=== PATIENT | female | born 1985 | race Caucasian/White ===

== ENCOUNTER 2019-03-09 11:40 | Outpatient (REF) | payer MEDICAID, SELFPAY ==
--- NOTE | 2019-03-09 09:30 | PAPFT_PTH ---
PATIENT: Rosalind Krishnan V LOC: [facility] U#:[id number] AGE/SX: 34/F ROOM: RE03/09/[address]: Skye Chaudhari : 1985 BED: DIS: 03/09/2019 SPEC #: [id number] RECD: 03/09/19 18:11 STATUS: KAREL REQ #: [id number] SOUMYA: 03/09/19 09:[address]: Skye Chaudhari DEPT: [facility] Cytology RECD BY: Kaci Guthrie Tissues: 1 - CX/ENDOCX FOR PAP SMEARS Procedures: PAP THIN PREP/UVM Screening HPV DNA PROBE Comments: [id number]
== END 2019-03-09 12:00 ==
LOC: NCHCN 11:40
PROVIDERS: PCP Nurse Practitioner Family; Visit Provider Nurse Practitioner Family
DX: Z12.4 Encounter for screening for malignant neoplasm of cervix (principal); Z11.51 Encounter for screening for human papillomavirus (HPV)
CPT/HCPCS: 88142; 87624

== ENCOUNTER 2019-05-26 09:34 | Emergency (ER) | payer MEDICAID, SELFPAY ==
[2019-05-26 09:37] VITALS: BP 109/70; PULSE 99; RESP 16; TEMP 37.1; O2SAT 99
--- NOTE | 2019-05-26 09:55 | ED.GENADUL_ITS ---
Discharge Plan Disposition Patient Disposition: HOME Condition: Improving Discharge Details Chief Complaint: GenMedical Clinical Impression: Localized swelling of right upper extremity Primary Care Provider: Skye Chaudhari ED Provider: Jos Jackson Home Meds and New Rx's Prescriptions: New Eliquis 5 mg tablet 10 mg PO BID 3 Days Qty: 12 RF: 0 No Action ibuprofen 600 MG tablet 600 mg PO Q6H PRN Qty: 30 RF: 3 Discharge Instructions Additional Instructions: Take Eliquis 10 mg twice daily and return on Tuesday for right upper extremity ultrasound as we discussed. Return immediately if you develop chest pain, shortness of breath, or any other acute concerns. Avoid the use of ibuprofen/Advil/Motrin while taking Eliquis. Stand Alone Forms: Work Release Medical Decision Making 34-year-old female presents with gradual onset of right humerus swelling, overlying mild pruritic erythema that developed over hours time. She denies trauma, repetitive use, known environmental exposure. She is mildly anxious but otherwise well-appearing and with exam the lacks other significant findings. Differential diagnosis includes allergic reaction with edema, developing cellulitis, doubt DVT, must exclude developing deep abscess. Patient had screening laboratories with white blood cell count 6, hematocrit 42, platelets 211. CRP negative, comprehensive panel unremarkable. CT reveals moderate subcutaneous edema medially over the right humerus. There is no abnormal gas, no fluid collection. There is question of a filling defect involving the brachial vein in the mid to distal arm. Ultrasound recommended but not available on the weekend. Discussed with patient the findings, it does seem consistent with DVT, I will place her on Eliquis for the weekend, she will return Tuesday for right upper extremity venous ultrasound and recheck in the ED. She understands return precautions in the interim. HPI General Mode of arrival: ambulatory . Date/Time Provider Initiated Documentation: 05/26/19 09:39 . Limitations to Documentation: no limitations . Information obtained by: patient . History of Present Illness 34 year old F presents to the emergency department with the chief complaint of Right upper extremity swelling and discomfort of the humerus, mild itching, described as moderate, Quality is described as dull and constant, and is localized to the right and upper extremity. Patient reports no radiation. Patient started experiencing this hour(s) and it has been constant. No relieving factors improve symptom(s), No exacerbating factors reported . Patient notes other (Discrete redness, itching); denies fever/chills. Patient did receive the following treatments prior to arrival, none Related Data Home Medications Medication Instructions Recorded Confirmed ibuprofen 600 mg PO Q6H PRN #30 tab-cap 01/08/15 05/26/19 apixaban [Eliquis] 10 mg PO BID 3 Days #12 tab 05/26/19 Previous Rx's Medication Instructions Recorded apixaban [Eliquis] 10 mg PO BID 3 Days #12 tab 05/26/19 Allergies Allergy/AdvReac Type Severity Reaction Status Date / Time morphine Allergy Severe gets a Unverified 05/26/19 09:42 wright and feels something in her throat. tramadol Allergy Intermediate Other (See Unverified 05/26/19 09:42 Comment) fluoxetine HCl [From Prozac] AdvReac Severe dizzness Unverified 05/26/19 09:42 and lips go numb. marijauna AdvReac Intermediate vomiting Uncoded 05/26/19 09:42 General Stated Complaint: GenMedical ZAC: 4 Review of Systems Review of Systems Narrative: No fever or chills. Denies insect bite, no fall or trauma, no new repetitive use. No chest pain or shortness of breath. Otherwise healthy woman. No weakness. 6 systems reviewed and negative [facility] Medical History Anxiety and depression Dysmenorrhea Female pelvic pain Migraine Tobacco use Surgical History Ligation of fallopian tube (~2011) Family History Mother Thyroid disorder Father Depression Social History Smoking/Tobacco Use Status: Current every day Tobacco Type: cigarettes Alcohol Intake: former Drug use: Never Substance use type: does not use Do you feel safe at home: Yes Do you feel safe in your relationship?: Yes Exam Narrative Exam Narrative: GEN: awake, alert, oriented 3. Pleasant, well groomed, interactive. HEAD: Normocephalic, atraumatic ENT: Mucous membranes moist, oropharynx unremarkable, External ear exam unremarkable EYES: PERRL, EOMI NECK: Full ROM, no ALEX, no menigismus CHEST/RESP: Nontender, clear to auscultation bilateral, no wheeze/rhonchi/rales CARDIOVASCULAR: RRR, no murmur, rub juan carlos. 2+ Rad pulse bilateral ABDOMEN: Soft, nontender, no mass. +Bowel sounds EXT: Full ROM. 2+ radial pulse, sensation and motor intact throughout. The right humerus overlying the triceps in the dependent/medial aspect reveals discr ete blanching erythema, mild edema, no fluctuance. Neuro: Grossly normal neurologic exam, conversant, interactive. Psych: Speech fluent, thoughts congruent, affect normal Course Vital Signs Vital signs: Vital Signs Temperature 37.1 C 05/26/19 09:37 Pulse 99 H 05/26/19 09:37 Respiratory Rate 16 05/26/19 09:37 Blood Pressure 109/70 05/26/19 09:37 Pulse Oximetry 99 05/26/19 09:37 Temperature 37.1 C 05/26/19 09:37 Temperature Source Skin 05/26/19 09:37 Pulse 99 H 05/26/19 09:37 Respiratory Rate 16 05/26/19 09:37 Respiratory Effort Non-Labored 05/26/19 09:43 Blood Pressure 109/70 05/26/19 09:37 Pulse Oximetry 99 05/26/19 09:37 Pain Level 2 05/26/19 09:37
[2019-05-26] MEDS: Normal Saline 1,000 ML 1000 ML IV (10:28)
[2019-05-26] MEDS: methylPREDNISolone SUCC 125 MG VIAL IVP (10:30)
[2019-05-26] MEDS: Omnipaque 350 MG/ML 100 ML BTL IJ (10:31)
[2019-05-26] MEDS: Normal Saline - Diluent 50 ML VIAL IV (10:31)
[2019-05-26 10:32] LABS: Abs Immature Grans 0.02 k/cumm (0.0-0.09); Absolute Basophil Count 0.04 k/cumm (0.0-0.2); Absolute Eosinophil Count 0.39 k/cumm (0.0-0.7); Absolute Lymphocyte Count 1.35 k/cumm (1.2-3.4); Absolute Monocyte Count 0.38 k/cumm (0.11-0.7); Absolute Neutrophil Count 4.57 k/cumm (1.2-6.7); Basophils % 0.6; Eosinophils % 5.8; HCT 42.5 % (36.0-46.0); HGB 14.2 g/dL (12.0-15.5); Immature Grans % 0.3; Mean Corp. HGB Concentration 33.4 g/dL (32.0-36.0); Mean Corpuscular Hemoglobin 30.9 pg (27.0-33.0); Mean Corpuscular Volume 92.6 fL (80-95); Mean Platelet Volume 10.1 fL (8.0-11.0); Monocytes % 5.6; Neutrophils % 67.7; Platelet Count 211 x1000/uL (130-400); RBC 4.59 m/cumm (4.00-5.20); RBC Distribution Width 12.6 % (11.7-14.6); White Blood Cell Count 6.75 k/cumm (4.4-10.8)
[2019-05-26 10:44] LABS: ALT 18 U/L (14-59); AST 19 U/L (15-37); Alkaline Phosphatase 46 U/L (46-116); Anion Gap 9.3 mmol/L (3-11); BUN 11 mg/dL (7-18); Bilirubin, Total 0.6 mg/dL (0.2-1.0); CO2 25.7 mmol/L (21.0-32.0); CREATININE 0.73 mg/dL (0.55-1.02); Calcium 8.8 mg/dL (8.5-10.1); Chloride 109 mmol/L (98-107); Glucose 94 mg/dL (70-100); Sodium 144 mmol/L (136-145); Total Protein 7.4 g/dL (6.4-8.2)
--- NOTE | 2019-05-26 10:45 | DI.VRAD_ITS ---
Addendum created by Reece Ayala MD on 05/26/2019 10:50:27 AM EDT THIS REPORT CONTAINS FINDINGS THAT MAY BE CRITICAL TO PATIENT CARE. The findings were verbally communicated via telephone conference with KANIKA Paz at 10:50 AM EDT on 05/26/2019. The findings were acknowledged and understood. Initial report created on 05/26/2019 10:45:19 AM EDT PROCEDURE INFORMATION: Exam: CT Right Upper Extremity With Contrast, Upper Arm Exam date and time: 05/26/2019 10:18 AM Clinical history: 34 years old, female; Arm, upper; Patient HX: Right humerus swelling from shoulder to distal elbow joint. Pain and swelling since this morning. ; Additional info: PT sts no trauma, was not stung. Patient unsure why swelling and pain of right arm occurred. TECHNIQUE: Imaging protocol: CT of the Right upper extremity with intravenous contrast was performed. Exam focused on the upper arm. Radiation optimization: All CT scans at this facility use at least one of these dose optimization techniques: automated exposure control; mA and/or kV adjustment per patient size (includes targeted exams where dose is matched to clinical indication); or iterative reconstruction. Contrast material: OMNIPAQUE 350; Contrast volume: 100 ml; Contrast route: IV; COMPARISON: No relevant prior studies available. FINDINGS: Bones/joints: No acute fracture is identified. The shoulder and elbow joints are normally aligned. There is no osseous erosion or cortical destruction. No significant shoulder or elbow joint effusion is evident. Soft tissues: There is moderate subcutaneous edema medially over the arm, from the level of the axilla to the elbow. Edema also extends along the axillary vessels. There is probably edema involving some of the posteromedial musculature of the arm as well. No well-formed collection to indicate abscess is identified. There is no abnormal gas in the soft tissues. Vasculature: Question filling defect involving the brachial vein in the mid to distal arm. Lungs: The visualized right lung is clear. IMPRESSION: Moderate subcutaneous edema medially over the arm and about the axillary vessels, probable edema involving some of the posteromedial musculature. No abnormal soft tissue mass or collection. Findings are nonspecific, but there may be deep venous thrombus in the brachial vein. Suggest venous Doppler evaluation. Dictated and Authenticated by: Reece Ayala MD. Ordering:NATALIE Arguello MD
[2019-05-26 10:56] LABS: C-Reactive Protein < 0.05 mg/dL (0.0-0.3)
[2019-05-26] MEDS: Apixaban 5 MG TAB 10 MG PO (11:33)
--- NOTE | 2019-05-26 12:30 | DI.CT_ITS ---
EXAM: CT UPPER EXTREMITY RT W CLINICAL HISTORY: RUE humerus, dependent swelling, discomfort. TECHNIQUE: CT scan of the right upper extremity was performed from the axilla to the elbow. Intrave nous contrast material was administered. COMPARISON: No exams were available for comparison FINDINGS: No acute fracture, dislocation, lytic, or sclerotic lesion is seen. No significant joint effusion is seen in the shoulder or elbow. There is moderate subcutaneous edema seen in the right upper extremi ty medially. This extends from the axilla to the elbow. No focal fluid collection is seen to sugges t an abscess. No air is seen in the soft tissues. There is a question of a filling defect in the br achial vein extending from the mid to distal arm. The visualized lungs are clear IMPRESSION: Moderate subcutaneous edema over the arm medially. No focal fluid collection is seen to suggest an a bscess. Question of a filling defect involving the brachial vein. Ultrasound of the right upper extremity ma y be considered for further evaluation.
[2019-05-26 12:54] VITALS: BP 100/58; PULSE 71; RESP 16; O2SAT 100
--- NOTE | 2019-05-27 09:40 | CMPROGNOTE_ITS ---
- If Service Date Differs Date of service: 05/26/19 Time of Service: 13:30 Care Management Progress Note S/O: KIMBERLEE met with Rosalind at the bedside she is a pleasant young female in the ED today with a suspected DVT in her right arm. Rosalind identifies multiple stresses in her life contributing to her increase anxiety. 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 She states her anxiety inhibits her from taking new medications and she is concerned that she will not be able to take the Eliquis for the suspected DVT. Rosalind has started the medication here at the hospital and feels supported that she is in a controlled environment when starting the medication. Rosalind has minimal supports she has her two children 14 and 11 which live with her. She works in [place] and she identifies her boss as additional support. She stopped taking medications for her anxiety about 4 years ago and is aware of some methods to decrease her anxiety including deep breathing, and counting which both help. KIMBERLEE reviewed some other techniques including grounding herself using the method of 5 things you can see, 4 things you can hear, three things you can touch, two things you can touch and one thing you can taste. Rosalind was able to do the exercise with CM in the room and she felt this gave her relief from the anxiety she was feeling. She is willing to see her provider and meet with T at her primary care. CM will fax referral for follow up to the provider and request that she be referred to [facility] at [facility]. KIMBERLEE will also contact [facility] Tania Matos RN [facility] at the practice for follow up. Rosalind will return to [facility] on Tuesday for Ultra Sound on the right arm. Rosalind will contact if she has any difficulty with obtaining her medications or taking them. P: Rosalind was able to demonstrate some calming techniques to control her symptoms of anxiety. She will have her ultra sound on Tuesday. KIMBERLEE will contact primary care and request a follow up ED appointment and referral to T and CCC. Rosalind best contact number is [phone].
== END 2019-05-26 13:04 | disposition home or self-care (01) ==
PROVIDERS: Emergency Provider Emergency Medicine; PCP Nurse Practitioner Family
DX: R22.31 Localized swelling, mass and lump, right upper limb (principal)
CPT/HCPCS: 36415; 80053; 96361; 96374; 99285; 73201; 85025; 86140; 99284; J2930; J3490

== ENCOUNTER 2019-05-28 09:40 | Outpatient (CLI) | payer MEDICAID, SELFPAY ==
--- NOTE | 2019-05-28 10:11 | DI.US_ITS ---
EXAM: US UPPER EXTREMITY VENOUS RT CLINICAL HISTORY: PAIN, SWELLING, ? DVT ON CT. TECHNIQUE: Ultrasound examination of the right upper extremity venous system(s) is performed using g rayscale, color-flow, and spectral Doppler analysis. COMPARISON: There are no priors for comparison. FINDINGS: The right internal jugular, axillary, subclavian, cephalic, basilic, and brachial veins are patent wi thout evidence of thrombosis. IMPRESSION: No DVT. The emergency department was contacted with these results.
== END 2019-05-28 10:00 ==
PROVIDERS: PCP Nurse Practitioner Family; Visit Provider Emergency Medicine
DX: M79.601 Pain in right arm (principal); R22.31 Localized swelling, mass and lump, right upper limb
CPT/HCPCS: 93971

== ENCOUNTER 2019-05-28 11:08 | Emergency (ER) | payer MEDICAID, SELFPAY ==
[2019-05-28 11:13] VITALS: BP 112/70; PULSE 69; RESP 16; TEMP 36.8; O2SAT 100
--- NOTE | 2019-05-28 11:17 | ED.GENADUL_ITS ---
Discharge Plan Disposition Patient Disposition: HOME Condition: Improving Discharge Details Chief Complaint: Recheck Clinical Impression: Pain and swelling of right upper extremity Primary Care Provider: Skye Chaudhari ED Provider: Janell Saul Home Meds and New Rx's Prescriptions: Continued ibuprofen 600 MG tablet 600 mg PO Q6H PRN Qty: 30 RF: 3 Discontinued Eliquis 5 mg tablet 10 mg PO BID 3 Days Qty: 12 RF: 0 Discharge Instructions Additional Instructions: Encourage elevation. Your ultrasound did not show any evidence of clot. You may stop the Eliquis. At this point, as you are symptoms are improving, I advised that you can closely monitor the area and follow-up with your primary care. If you develop chest pain, shortness of breath, increased swelling, rash, increased pain, fever/chills or other new/worsening symptoms please seek care urgently once again. Referrals: Skye Chaudhari [Primary Care Provider] - Discharge Data Discharge Date/Time-TO BE ENTERED AT DEPARTURE: 05/28/19 11:38 Medical Decision Making Patient is a 34-year-old [id number] female presenting today with chief complaint of reevaluation of her right upper extremity. She was seen here 2 days ago at which time a CT and laboratory evaluation was completed for right upper extremity swelling. She reports that the swelling had begun the day prior to her presentation here and progressively had increased. Denies any known contact. Reports that after leaving here, she developed an itchy, erythematous rash to the medial aspect of the right upper arm. Patient was placed on Eliquis as there was concern CT scan for possible DVT. Patient underwent her ultrasound prior to arrival today. She denies any altered sensation. Feels that the swelling has greatly reduced. The rash has subsided. She denies any systemic illness, no shortness of breath, chest pain. Denies any altered sensation. Denies any fevers. No recent travel. No recent antibiotic use. On exam, the patient is resting comfortably. No large amount of swelling was in itially noted to the affected upper extremity. Both she and her significant other reports that the arm is twice the size it is now when she was evaluated here previously. I did measure the circumference of the upper extremity and found to be 1 cm larger than the contralateral side. She has good distal pulses. No rash. No palpable evidence of abscess, no crepitus, no palpable lymphadenopathy. Contacted by radiologist who advised no acute findings to suggest a DVT at this time. I discussed these findings with the patient. Is unclear as to what caused this. On the differential when she was here last was concerned for possible allergic reaction. Given the progression with the rash and the urticaria, this is likely the source. At this point, I am unable to 100% diagnosis of the underlying source of the symptoms. However, I feel that the emergent issues have been ruled out. I do not see any evidence of infection, abscess, subcutaneous air, lymphadenopathy, there is no evidence of a DVT on the upper extremity ultrasound. The symptoms have greatly improved. I advised she may come off the Eliquis at this time. I advised she needs to have prompt follow-up with her primary care, she will call to schedule follow-up appointment this week. She was given strict return precautions. All of her questions and concerns were addressed and she is in agreement with this plan. HPI General Mode of arrival: ambulatory . Date/Time Provider Initiated Documentation: 05/28/19 11:12 . Limitations to Documentation: no limitations . Information obtained by: patient, family and RN notes reviewed . History of Present Illness 34 year old F presents to the emergency department with the chief complaint of LUE swelling, described as mild (denies any pain, swelling is vastly improved per patient report), Quality is described as other (felt like a knot initially, no symptoms now), and is localized to the left and upper extremity. Patient reports no radiation. Patient started experiencing this day(s) (3) and it has been now resolved. No relieving factors improve symptom(s), No exacerbating factors reported . Patient notes no other symptoms.. Patient did receive the following treatments prior to arrival, other (anticoagulated on Eliquis) Related Data Home Medications Medication Instructions Recorded Confirmed ibuprofen 600 mg PO Q6H PRN #30 tab-cap 01/08/15 05/28/19 Allergies Allergy/AdvReac Type Severity Reaction Status Date / Time morphine Allergy Severe gets a Unverified 05/28/19 11:15 wright and feels something in her throat. tramadol Allergy Intermediate Other (See Unverified 05/28/19 11:15 Comment) fluoxetine HCl [From Prozac] AdvReac Severe dizzness Unverified 05/28/19 11:15 and lips go numb. marijauna AdvReac Intermediate vomiting Uncoded 05/28/19 11:15 General Stated Complaint: Recheck ZAC: 5 Review of Systems Constitutional Constitutional: Reports as per HPI, Denies chills, Denies fever(s), Denies headache(s) and Denies weakness ENT Ears, Nose, Mouth, and Throat: Denies headache(s) Cardiovascular Cardiovascular: Reports as per HPI Respiratory Respiratory: Reports as per HPI and Denies cough Musculoskeletal Musculoskeletal: Reports as per HPI and Denies tingling Integumentary/Breasts Skin/Breast: Reports as per HPI, Denies rash and Denies wounds Neurologic Neurologic: Reports as per HPI, Denies headache(s), Denies tingling, Denies paresthesias and Denies weakness [facility] Medical History Anxiety and depression Dysmenorrhea Female pelvic pain Migraine Tobacco use Surgical History Ligation of fallopian tube (~2011) Social History Smoking/Tobacco Use Status: Current every day Tobacco Type: cigarettes Alcohol Intake: former Drug use: Never Substance use type: does not use Do you feel safe at home: Yes Do you feel safe in your relationship?: Yes Exam Const General: cooperative, healthy appearing, comfortable, no acute distress, well developed and well groomed Nutritional Appearance: average body habitus and well nourished Orientation: alert and awake Resp Effort & Inspection: normal respiratory effort, able to speak in complete sentences and no respiratory distress Auscultation: clear to auscultation bilaterally Cardio Rate: regular rate Rhythm: regular rhythm Heart Sounds: S1 normal and S2 normal Pulses: radial pulses present and ulnar pulses present Skin General skin exam: no rashes or lesions noted Lesions: no lesions Rashes: no rashes Trauma: no lacerations or abrasions Neuro General: alert and awake Cognition: normal cognition Speech: speech normal Gait: normal gait Motor: muscle tone normal throughout Sensory Exam: no sensory deficits noted Extrem General: normal to inspection, full ROM, normal capillary refill, no joint enlargement and normal gait Right upper extremity: normal to inspection, full ROM, normal capillary refill and no joint enlargement; no edema Psych Appearance: grossly normal and well kempt Mental Status: mental status grossly normal Speech and Movement: speech and movement normal Course Vital Signs Vital signs: Vital Signs Temperature 36.8 C 05/28/19 11:13 Pulse 69 05/28/19 11:13 Respiratory Rate 16 05/28/19 11:13 Blood Pressure 112/70 05/28/19 11:13 Pulse Oximetry 100 05/28/19 11:13 Temperature 36.8 C 05/28/19 11:13 Temperature Source Skin 05/28/19 11:13 Pulse 69 05/28/19 11:13 Respiratory Rate 16 05/28/19 11:13 Respiratory Effort Non-Labored 05/28/19 11:13 Blood Pressure 112/70 05/28/19 11:13 Blood Pressure Position Sitting 05/28/19 11:13 Pulse Oximetry 100 05/28/19 11:13 Oxygen Delivery Method Room Air 05/28/19 11:13 Oxygen Flow Rate 0 05/28/19 11:13 Pain Level 0 05/28/19 11:13
== END 2019-05-28 11:38 | disposition home or self-care (01) ==
LOC: ER 11:39
PROVIDERS: Emergency Provider Physician Assistant; PCP Nurse Practitioner Family
DX: R22.31 Localized swelling, mass and lump, right upper limb (principal)
CPT/HCPCS: 99283

== ENCOUNTER 2019-09-13 09:34 | Emergency (ER) | payer MEDICAID, SELFPAY ==
[2019-09-13 09:37] VITALS: BP 116/67; PULSE 88; RESP 18; TEMP 36.5; O2SAT 100
--- NOTE | 2019-09-13 09:55 | ED.GENADUL_ITS ---
Discharge Plan Disposition Patient Disposition: HOME Discharge Details Chief Complaint: Orthopedic Clinical Impression: Right shoulder strain Primary Care Provider: Skye Chaudhari ED Provider: Brandyn Glez Home Meds and New Rx's Prescriptions: No Action multivitamin Capsule 1 cap PO QAM RF: 0 Discharge Instructions Instructions: Rotator Cuff Tendinitis (ED) Additional Instructions: Your x-rays are negative for any acute fracture. I suspect that you have a mild degree of rotator cuff tendinitis. You are at risk for this secondary to your occupation. Attempting activities using your left arm will help alleviate stress on your right shoulder. Avoid sleeping on your right side and with your arms above your head. Start taking ibuprofen 200 m tabs every 8 hours as needed for pain. You may ice the affected shoulder. If your symptoms are persisting over the next 2 weeks I would recommend that you follow-up with your primary care doctor to discuss further management which may include outpatient physical therapy Referrals: Skye Chaudhari [Primary Care Provider] - 2 weeks Discharge Data Discharge Date/Time-TO BE ENTERED AT DEPARTURE: 09/13/19 10:28 Medical Decision Making This is a nontoxic-appearing 34-year-old female who presents to the emergency department with nontraumatic right shoulder pain. She is at risk for rotator cuff pathology based on occupation. She has tenderness over the anterior aspect of her right shoulder. Provocative testing stressing her biceps tendon elicits discomfort. She has full range of motion therefore suspect tendon rupture. Discussed supportive measures at home including a short course of nonsteroidal anti-inflammatory medications. Return precautions provided. She should follow- up with her primary care provider should her symptoms persist. HPI General Date/Time Provider Initiated Documentation: 09/13/19 09:44 . HPI Narrative: Patient is a 34-year-old female without significant past medical history presents to the emergency department with right shoulder pain x5 days. Patient states that she was vacuuming on Tuesday when she noted a strain in her right shoulder. She denies any trauma. 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 She denies any significant shoulder discomfort prior to her episode on Tuesday. She describes pain with the initiation of overhead activity. No severe weakness. She denies any numbness or tingling. No neck pain. She is not taking anything for the pain. Related Data Home Medications Medication Instructions Recorded Confirmed multivitamin 1 cap PO QAM 09/13/19 09/13/19 Allergies Allergy/AdvReac Type Severity Reaction Status Date / Time morphine Allergy Severe gets a Unverified 09/13/19 09:42 wright and feels something in her throat. tramadol Allergy Intermediate Other (See Unverified 09/13/19 09:42 Comment) fluoxetine HCl [From Prozac] AdvReac Severe dizzness Unverified 09/13/19 09:42 and lips go numb. marijauna AdvReac Intermediate vomiting Uncoded 09/13/19 09:42 General Stated Complaint: Orthopedic ZAC: 4 Review of Systems ENT Ears, Nose, Mouth, and Throat: Denies neck pain Musculoskeletal Musculoskeletal: Denies back pain, Denies arthralgias, Denies joint swelling, Denies limited range of motion, Denies muscle cramps, Denies neck pain, Denies numbness, Reports stiffness and Denies tingling Neurologic Neurologic: Denies numbness and Denies tingling PFSH Medical History Anxiety and depression Dysmenorrhea Female pelvic pain Migraine Tobacco use Surgical History Ligation of fallopian tube (~2011) Family History Mother Thyroid disorder Father Depression Social History Smoking/Tobacco Use Status: Current every day Tobacco Type: cigarettes Alcohol Intake: former Drug use: Never Substance use type: does not use Do you feel safe at home: Yes Do you feel safe in your relationship?: Yes Exam Const General: cooperative, healthy appearing, comfortable and no acute distress Neck Neck: normal visual inspection and full ROM Chest Chest: normal inspection of the chest Resp Effort & Inspection: normal respiratory effort Cardio Pulses: radial pulses present and normal peripheral pulses Back/Spine/Pelvis Cervical Spine: normal cervical lordosis and cervical ROM normal Thoracic/Lumbar Spine: thoracic and lumbar spine normal to inspection Skin General skin exam: no rashes or lesions noted Neuro General: gait normal, tone normal, normal light touch, pain and propioception and no focal motor deficits Extrem General: normal to inspection Right upper extremity: normal to inspection, full ROM and shoulder/upper arm Details: tenderness Location: over the biceps tendon Other: Patient with full range of motion of the right shoulder. Pain significant on early range of active range of motion. Tenderness over the biceps tendon anteriorly. She has a slightly positive impingement sign. Course Vital Signs Vital signs: Vital Signs Temperature 36.5 C 09/13/19 09:37 Pulse 88 09/13/19 09:37 Respiratory Rate 18 09/13/19 09:37 Blood Pressure 116/67 09/13/19 09:37 Pulse Oximetry 100 09/13/19 09:37 Temperature 36.5 C 09/13/19 09:37 Temperature Source Temporal Artery Scan 09/13/19 09:37 Pulse 88 09/13/19 09:37 Respiratory Rate 18 09/13/19 09:37 Respiratory Effort Non-Labored 09/13/19 09:41 Blood Pressure 116/67 09/13/19 09:37 Blood Pressure Position Sitting 09/13/19 09:37 Pulse Oximetry 100 09/13/19 09:37 Oxygen Delivery Method Room Air 09/13/19 09:37 Oxygen Flow Rate 0 09/13/19 09:37 Pain Level 1 09/13/19 09:37
--- NOTE | 2019-09-13 10:09 | DI.RAD_ITS ---
EXAM: XR SHOULDER RT COMPLETE 2+V INDICATION: anterior lateral right shoulder pain x 5 days. COMPARISON: No exams were available for comparison TECHNIQUE: 2D digital imaging was performed. FINDINGS: No fracture or dislocation is seen. The AC joint is not widened. The ribs are unremarkable. There is no pneumothorax. IMPRESSION: Negative right shoulder.
== END 2019-09-13 10:28 | disposition home or self-care (01) ==
LOC: ER 10:38
PROVIDERS: Emergency Provider Physician Assistant; PCP Nurse Practitioner Family
DX: S46.911A Strain of unspecified muscle, fascia and tendon at shoulder and upper arm level, right arm, initial encounter (principal); M75.101 Unspecified rotator cuff tear or rupture of right shoulder, not specified as traumatic; X50.3XXA Overexertion from repetitive movements, initial encounter
CPT/HCPCS: 99283; 73030

== ENCOUNTER 2020-03-05 13:15 | Outpatient (REF) | payer MEDICAID, SELFPAY ==
[2020-03-10 09:11] LABS: SARS-CoV-2 RNA Undetected (Undetected); SARS-CoV-2 Specimen Source Nasopharynx
== END 2020-03-05 13:35 ==
LOC: NCHCN 13:15
PROVIDERS: PCP Nurse Practitioner Family; Visit Provider Nurse Practitioner Family
DX: Z20.828 Contact with and (suspected) exposure to other viral communicable diseases (principal)
CPT/HCPCS: U0003

== ENCOUNTER 2020-04-23 19:02 | Outpatient (REF) | payer MEDICAID, SELFPAY ==
[2020-04-25 15:04] LABS: Chlamydia Result Negative (Negative); GC Result Negative (Negative)
== END 2020-04-23 19:22 ==
LOC: NCHCN 19:02
PROVIDERS: PCP Nurse Practitioner Family; Visit Provider Nurse Practitioner Family
DX: N89.8 Other specified noninflammatory disorders of vagina (principal); Z11.3 Encounter for screening for infections with a predominantly sexual mode of transmission
CPT/HCPCS: 87491; 87591; 87480; 87510; 87660

== ENCOUNTER 2020-05-01 01:10 | Outpatient (CLI) | payer MEDICAID, SELFPAY ==
--- NOTE | 2020-05-01 | DI.US_ITS ---
EXAM: US PELVIS TRANSVAGINAL CLINICAL HISTORY: PELVIC PAIN ACUTE, R10.2. TECHNIQUE: Transabdominal and transvaginal pelvic ultrasound was performed using standard protocol. COMPARISON: US PELVIS TRANSVAG from 01/09/2015 FINDINGS: KIDNEYS: Kidneys are symmetric in size. No evidence of renal calculi. No evidence of hydronephrosis. No renal mass or cyst identified. UTERUS: Position: Anteverted. Size: 6.9 long by 4.0 AP by 5.2 transverse cm Endometrium: 0.6 cm. Normal for patient's menstrual status. Myometrium: Unremarkable. Cervix: Unremarkable. OVARIES: Right: 3 x 1.8 x 2.2 cm Cyst or mass: 2.3 x 2.3 x 2.1 cm complex avascular lesion on the right ovary likely reflecting hemorr hagic cyst. Left: 2.2 x 1.2 x 1.4 cm Cyst or mass: None. DOPPLER: Color: Symmetric and uniform flow to both ovaries. No hyperemia. Duplex: Normal ovarian arterial waveforms visualized. CUL-DE-SAC: Free fluid: None. Other: None. IMPRESSION: 1. Normal sonographic appearance of the kidneys. 2. Normal-appearing uterus with endometrial stripe within normal limits. 3. 2.3 cm hemorrhagic right ovarian cyst. DATA REPOSITORY:
== END 2020-05-01 01:30 ==
PROVIDERS: PCP Nurse Practitioner Family; Visit Provider Nurse Practitioner Family
DX: N83.201 Unspecified ovarian cyst, right side (principal); R10.2 Pelvic and perineal pain
CPT/HCPCS: 76830; 76856

== ENCOUNTER 2021-05-29 00:22 | Emergency (ER) | payer MEDICAID, SELFPAY ==
--- NOTE | 2021-05-29 00:26 | W.ED.GENAD ---
Discharge Plan Disposition Patient Disposition: HOME Condition: Good Discharge Details Chief Complaint: GenMedical Clinical Impression: Anterior chest wall pain Primary Care Provider: Skye Chaudhari ED Provider: Domenic Ferrer Home Meds and New Rx's Prescriptions: No Action multivitamin Capsule 1 cap PO QAM RF: 0 Discharge Instructions Instructions: Chest Wall Pain (ED) Additional Instructions: Your EKG and chest x-ray look fine. Pain is likely related to musculoskeletal and should respond to continued ibuprofen and heat. Follow-up with primary care next week if no improvement. Return to ED for new or worsening pain, increasing shortness of breath, fever, other concerns. Referrals: Skye Chaudhari [Primary Care Provider] - Medical Decision Making Patient presenting with pleuritic type upper chest and back pain on the left side now present for almost 1 week. Seemed worse to her tonight so reports to ED but has not taken anything for pain since earlier this week. Vital signs are normal. She is low risk for pulmonary embolus by revised Redford score. She PERCs out and does not need further testing. Suspect this is all musculoskeletal especially given the exquisite point tenderness anterior chest wall. Will obtain EKG and chest x-ray and treat with ibuprofen. EKG per my review is normal. Chest x-ray per my review is normal with no pneumothorax. Recommend continued nonsteroidal use and heat and follow-up with primary care next week if not improving. Return to ED for new or worsening symptoms. ECG Data Attestation: I personally reviewed and interpreted this ECG (s) as follows: Prior ECG tracings: not available for review Interpretation: see EKG HPI General Mode of arrival: ambulatory. Date/Time Provider Initiated Documentation: 05/29/21 00:26. Limitations to Documentation: no limitations. Information obtained by: patient and RN notes reviewed. HPI Narrative: Patient presents to ED with left upper chest and back pain. She has had this now for almost a week. She remembers doing a cartwheel Tuesday night. Had pain since Tuesday. Took Advil Tuesday but nothing since. The pain has been present but tonight seemed to be much worse for no reason. Pain does not seem to be with range of motion of the left upper extremity. Does get a little worse with deep breathing. She does not feel short of breath. She has no fever or cough. She has no rash.She did not take anything for pain tonight but has been drinking beer. She is not on OCP. She has no history of DVT/PE. There has been no new trauma. Related Data Home Medications Medication Instructions Recorded Confirmed multivitamin 1 cap PO QAM 09/13/19 05/29/21 Allergies Allergy/AdvReac Type Severity Reaction Status Date / Time morphine Allergy Severe gets a Unverified 05/29/21 00:32 wright and feels something in her throat. tramadol Allergy Intermediate Other (See Unverified 05/29/21 00:32 Comment) fluoxetine HCl [From Prozac] AdvReac Severe dizzness Unverified 05/29/21 00:32 and lips go numb. marijauna AdvReac Intermediate vomiting Uncoded 05/29/21 00:32 General ZAC: 4 Review of Systems Narrative: As documented in HPI otherwise negative as below. Const: no fever, chills, weakness Resp: no cough, SOB CV: no diaphoresis, edema, syncope GI: no abdominal pain, nausea, vomiting, diarrhea Neuro: no headache, numbness, focal weakness, confusion [facility] Medical History (Updated 05/29/21 @ 01:35 by Domenic Ferrer MD) Anxiety and depression Dysmenorrhea Female pelvic pain Migraine Tobacco use Surgical History Ligation of fallopian tube (~2011) Family History Mother Thyroid disorder Father Depression Social History Smoking/Tobacco Use Status: Current every day Tobacco Type: cigarettes Smoking risk assessment performed?: Yes Alcohol Intake: former Drug use: Never Substance use type: does not use Do you feel safe at home: Yes Do you feel safe in your relationship?: Yes Exam Narrative Exam Narrative: Const: WDWN female in NAD. HEENT: NC/AT. Normal facial exam. Eyes: Normal conjunctiva and sclera. Neck: Supple. Trachea midline. Lungs: Normal respiratory effort. Lungs are clear. Point tender left upper lateral chest below the acromion process. Cor: RRR without murmur/gallop. Good radial pulses. Back: No tenderness posteriorly. Neuro: A+O x 3. Normal speech, mentation, gait. Cranial nerves II - XII grossly intact. No gross motor or sensory deficit. Ext: No C/C/E. No calf tenderness. Normal range of motion without pain left shoulder. Skin: Warm and dry without rash.
[2021-05-29 00:28] VITALS: BP 112/59; PULSE 84; RESP 18; TEMP 36.7; O2SAT 99
[2021-05-29 00:32] VITALS: RESP 18
--- NOTE | 2021-05-29 00:45 | DI.RAD_ITS ---
Exam(s) XR CHEST 2V PA LATERAL EXAM: XR CHEST 2V PA LATERAL CLINICAL HISTORY: CP TECHNIQUE: 2D digital imaging was performed of the chest. Two images were obtained. PA and lateral views were obtained. COMPARISON: CR CHEST 2 VIEWS PA,LAT from 08/05/2010 FINDINGS: MEDIASTINUM: Normal. HEART: Normal. PULMONARY VASCULATURE: Normal. LUNGS: Clear lungs. Hyperexpansion of the lungs which may represent an upper respiratory infection o r reactive airways disease. PLEURAL SPACE: No pleural effusion or pneumothorax. BONE:Within normal limits for the patient's age. OTHER FINDINGS:Normal. IMPRESSION: Hyperexpansion of the lungs which may represent upper respiratory infection or reactive airways disea se. No focal consolidating infiltrates. DATA REPOSITORY: RADIATION DOSE DELIVERED:
--- NOTE | 2021-05-29 00:45 | RT.EKG_ITS ---
APPROVED REPORT Exam: Resting ECG Reason for Exam: Patient Location: E HR:74 bpm ECG Measurements Heart Rate 74 AXIS CA 166 P 69 QRSd 100 QRS 52 QT 392 T 43 QTc 435 Conclusion Sinus rhythm...normal P axis, V-rate 60- 99 Probable left atrial enlargement...P >50mS, <-0.10mV V1 Normal [place] No acute ST changes
[2021-05-29] MEDS: Ibuprofen 600 MG TAB PO (00:55)
--- NOTE | 2021-05-29 01:51 | DI.VRAD_ITS ---
PROCEDURE INFORMATION: Exam: XR Chest Exam date and time: 05/29/2021 12:51 AM Age: 36 years old Clinical indication: Other: Cp TECHNIQUE: Imaging protocol: XR of the chest. Views: 2 views. COMPARISON: CR XR SHOULDER RT COMPLETE 2+V 09/13/2019 10:09 AM FINDINGS: Lungs: Hyperinflation consistent with emphysema. Patient is somewhat young for emphysema, but this cannot be excluded. No acute lung infiltrates or edema. Differential diagnosis would include air trapping from an upper respiratory infection or reactive airway disease. Pleural spaces: No pleural effusion. No pneumothorax. Heart/Mediastinum: Normal heart size. Bones/joints: Degenerative thoracic spine disease IMPRESSION: 1. Hyperinflation consistent suggesting emphysematous lung disease. Differential diagnosis of air trapping from an upper respiratory infection or reactive airway disease. Recommend clinical correlation. 2. Degenerative thoracic spine disease. 3. No acute cardiopulmonary disease. Dictated and Authenticated by: Alexandro Orozco MD. Ordering:JUANITA Sheth MD
== END 2021-05-29 01:46 | disposition home or self-care (01) ==
LOC: ER 01:45
PROVIDERS: Emergency Provider Emergency Medicine; PCP Nurse Practitioner Family
DX: R07.89 Other chest pain (principal)
CPT/HCPCS: 93005; 99284; 71046; 93010; 99283

== ENCOUNTER 2022-04-02 15:06 | Outpatient (REF) | payer MEDICAID, SELFPAY ==
[2022-04-02 15:25] LABS: HCT 44.5 % (36.0-46.0); HGB 14.9 g/dL (11.2-15.7); MCH 31.6 pg (27.0-33.0); MCHC 33.5 % (32.0-36.0); MCV 95 fL (80-95); MPV 10.7 fL (8.0-11.0); Platelet Count 194 10^3/uL (130-400); RBC 4.71 10^6/uL (3.93-5.22); RDW 12.6 % (11.7-14.6); RDW-SD 43.9 fL; WBC 5.56 10^3/uL (4.4-10.8)
[2022-04-02 15:44] LABS: ALT 30 U/L (14-59); AST 28 U/L (15-37); Albumin 4.3 g/dL (3.4-5.0); Alkaline Phosphatase 49 U/L (46-116); Anion Gap 8.6 mmol/L (3-11); BUN 15 mg/dL (7-18); Bilirubin, Total 0.4 mg/dL (0.2-1.0); CO2 27.4 mmol/L (21.0-32.0); CREATININE 0.8 mg/dL (0.55-1.02); Calcium 8.9 mg/dL (8.5-10.1); Chloride 103 mmol/L (98-107); Glucose 88 mg/dL (74-106); Potassium 3.7 mmol/L (3.5-5.1); Sodium 139 mmol/L (136-145); Total Protein 7.5 g/dL (6.4-8.2)
[2022-04-03 15:44] LABS: Chlamydia Result Negative (Negative); GC Result Negative (Negative)
[2022-04-04 11:28] LABS: HIV-1/2 Ag & Ab Screen Negative (Negative)
[2022-04-05 10:01] LABS: Hepatitis C Ab w Rflx HCV PCR Negative (Negative)
[2022-04-05 12:54] LABS: Syphilis Serology (RPR) Negative (Negative)
== END 2022-04-02 15:07 | disposition home or self-care (01) ==
LOC: NCHCN 15:06
PROVIDERS: PCP Nurse Practitioner Family; Visit Provider Nurse Practitioner Family
DX: F10.10 Alcohol abuse, uncomplicated; F17.200 Nicotine dependence, unspecified, uncomplicated; Z11.3 Encounter for screening for infections with a predominantly sexual mode of transmission; Z11.4 Encounter for screening for human immunodeficiency virus [HIV]; Z11.59 Encounter for screening for other viral diseases
CPT/HCPCS: 80053; 85027; 86803; 87389; 87491; 87591; 86592; 87480; 87510; 87660

== ENCOUNTER 2022-04-08 13:46 | Outpatient (REF) | payer MEDICAID, SELFPAY | END 2022-04-08 13:47 | disposition home or self-care (01) | LOC: NCHCN 13:46 | PROVIDERS: PCP Nurse Practitioner Family; Visit Provider Nurse Practitioner Family | DX: N89.8 Other specified noninflammatory disorders of vagina (principal) | CPT/HCPCS: 87480; 87510; 87660 ==

== ENCOUNTER 2023-01-10 15:05 | Outpatient (REF) | payer MEDICAID, SELFPAY ==
--- NOTE | 2023-01-10 14:35 | PAPFT_PTH ---
PATIENT: Rosalind Krishnan V LOC: [facility]#:[id number] AGE/SX: 37/F ROOM: RE01/10/[address]: Aydee Parrish : 1985 BED: DIS: 01/10/2023 SPEC #: [id number] RECD: 01/10/23 18:19 STATUS: KAREL REQ #: [id number] SOUMYA: 01/10/23 14:[address]: Aydee Parrish DEPT: [facility] Cytology RECD BY: Kaci Guthrie ENTERED: 01/10/23 18:19 SP TYPE: PAPFT ROMÁN DR: Skye Chaudhari Tissues: 1 - CX/ENDOCX FOR PAP SMEARS Procedures: PAP THIN PREP/UVM Screening Comments: [id number] (CHLAMYDIA/GC) (UNSATISFACTORY FOR EVALUATION)
[2023-01-11 14:21] LABS: Chlamydia Result Negative (Negative); GC Result Negative (Negative)
== END 2023-01-10 15:06 | disposition home or self-care (01) ==
LOC: NCHCN 15:05
PROVIDERS: PCP Nurse Practitioner Family; Visit Provider Family Medicine
DX: N93.8 Other specified abnormal uterine and vaginal bleeding (principal); N84.1 Polyp of cervix uteri; N89.8 Other specified noninflammatory disorders of vagina; Z11.3 Encounter for screening for infections with a predominantly sexual mode of transmission; Z12.4 Encounter for screening for malignant neoplasm of cervix; R87.615 Unsatisfactory cytologic smear of cervix
CPT/HCPCS: 87491; 87591; 88142; 87480; 87510; 87660

== ENCOUNTER 2023-02-11 11:57 | Outpatient (REF) | payer MEDICAID, SELFPAY ==
--- NOTE | 2023-02-11 10:51 | CER_PTH ---
PATIENT: Rosalind Krishnan V LOC: [facility] U#:[id number] AGE/SX: 37/F ROOM: RE02/11/[address]: Sherly Bar MD : 1985 BED: DIS: 02/11/2023 SPEC #: [id number] RECD: 02/11/23 12:52 STATUS: KAREL REQ #: [id number] SOUMYA: 02/11/23 10:[address]: Sherly Bar DEPT: Surgical Specimen RECD BY: Kaci Guthrie ENTERED: 02/11/23 12:53 SP TYPE: CER ROMÁN DR: Skye Chaudhari Tissues: 1 - CERVICAL BIOPSY Procedures: GROSS AND MICRO LEVEL 4 Comments: [id number]
--- NOTE | 2023-02-11 11:01 | PAPFT_PTH ---
PATIENT: Rosalind Krishnan V LOC: [facility] U#:[id number] AGE/SX: 37/F ROOM: RE02/11/[address]: Sherly Bar MD : 1985 BED: DIS: 02/11/2023 SPEC #: [id number] RECD: 02/11/23 13:00 STATUS: KAREL SMITH #: [id number] SOUMYA: 02/11/23 11:[address]: Sherly Bar DEPT: [facility] Cytology RECD BY: Kaci Guthrie ENTERED: 02/11/23 13:00 SP TYPE: PAPFT OT DR: Skye Chaudhari Tissues: 1 - CX/ENDOCX FOR PAP SMEARS Procedures: PAP THIN PREP/UVM Screening HPV DNA PROBE Comments: [id number] (CHLAMYDIA/GC)
[2023-02-14 14:20] LABS: Chlamydia Result Negative (Negative); GC Result Negative (Negative)
== END 2023-02-11 11:58 | disposition home or self-care (01) ==
LOC: LBN 11:57
PROVIDERS: PCP Nurse Practitioner Family; Visit Provider Obstetrics & Gynecology
DX: N84.1 Polyp of cervix uteri (principal); N93.0 Postcoital and contact bleeding
CPT/HCPCS: 87491; 87591; 88142; 88305; 87624

== ENCOUNTER 2023-09-27 10:35 | Outpatient (REF) | payer MEDICAID, SELFPAY ==
[2023-09-27 15:59] LABS: Abs Immature Grans 0.02 10^3/uL (0.0-0.06); Absolute Basophil Count 0.07 10^3/uL (0.0-0.2); Absolute Eosinophil Count 0.07 10^3/uL (0.0-0.7); Absolute Lymphocyte Count 1.25 10^3/uL (1.2-3.4); Absolute Monocyte Count 0.37 10^3/uL (0.1-0.8); Absolute Neutrophil Count 4.28 10^3/uL (1.2-6.7); Basophils % 1.2; Eosinophils % 1.2; HGB 12.3 g/dL (11.2-15.7); Immature Grans % 0.3; Lymphocytes % 20.6; MCH 30.5 pg (27.0-33.0); MCHC 32.4 % (32.0-36.0); MCV 94 fL (80-95); MPV 10.8 fL (8.0-11.0); Monocytes % 6.1; Neutrophils % 70.6; Platelet Count 169 10^3/uL (130-400); RBC 4.03 10^6/uL (3.93-5.22); RDW 12.4 % (11.7-14.6); RDW-SD 43.5 fL; WBC 6.06 10^3/uL (4.4-10.8)
[2023-09-27 16:43] LABS: ALT 19 U/L (14-59); AST 14 U/L (15-37); Albumin 3.8 g/dL (3.4-5.0); Alkaline Phosphatase 29 U/L (46-116); Anion Gap 7.2 mmol/L (3-11); BUN 9 mg/dL (7-18); Bilirubin, Total 0.3 mg/dL (0.2-1.0); CO2 29.8 mmol/L (21.0-32.0); CREATININE 0.6 mg/dL (0.55-1.02); Calcium 8.8 mg/dL (8.5-10.1); Chloride 106 mmol/L (98-107); Estimated GFR 117.02 (mL/min/1.73m2); Glucose 99 mg/dL (74-106); Potassium 3.7 mmol/L (3.5-5.1); Sodium 143 mmol/L (136-145); TSH 1.56 uIU/mL (0.36-3.74); Total Protein 6.7 g/dL (6.4-8.2)
== END 2023-09-27 10:36 | disposition home or self-care (01) ==
LOC: NCHCN 10:35
PROVIDERS: PCP Nurse Practitioner Family; Visit Provider Student in an Organized Health Care Education/Training Program
DX: R00.2 Palpitations (principal)
CPT/HCPCS: 80053; 84439; 84443; 85025

== ENCOUNTER 2023-10-14 14:53 | Outpatient (RCR) | payer MEDICAID, SELFPAY ==
--- NOTE | 2023-10-14 15:15 | HOLTER_ITS ---
APPROVED REPORT Conclusion This is a 48-hour Holter monitor Rhythm throughout was sinus with an average heart rate of 71. Minimum was 56, maximum 155 There were no ventricular dysrhythmias A total of 8 isolated premature atrial contractions were seen There was no atrial fibrillation, no high-grade AV block, no pauses greater than 3 seconds Patient's symptoms did not correlate with any dysrhythmia
== END 2023-10-27 23:59 | disposition home or self-care (01) ==
LOC: CARDOPNVT 14:53
PROVIDERS: PCP Nurse Practitioner Family; Visit Provider Internal Medicine Cardiovascular Disease
DX: R00.2 Palpitations (principal)
CPT/HCPCS: 93225; 93226

== ENCOUNTER 2025-05-31 15:24 | Outpatient (REF) | payer OTHER, SELFPAY ==
[2025-05-31 16:54] LABS: HCT 40.8 % (36.0-46.0); HGB 13.5 g/dL (11.2-15.7); MCH 31.0 pg (27.0-33.0); MCHC 33.1 % (32.0-36.0); MCV 94 fL (80-95); MPV 10.4 fL (8.0-11.0); Platelet Count 218 10^3/uL (130-400); RBC 4.36 10^6/uL (3.93-5.22); RDW 12.3 % (11.7-14.6); RDW-SD 42.6 fL; WBC 5.42 10^3/uL (4.4-10.8)
[2025-05-31 17:36] LABS: ALT 21 U/L (14-59); AST 16 U/L (15-37); Albumin 4.4 g/dL (3.4-5.0); Alkaline Phosphatase 40 U/L (46-116); Anion Gap 10.4 mmol/L (3-11); BUN 16 mg/dL (7-18); Bilirubin, Total 0.5 mg/dL (0.2-1.0); CO2 27.6 mmol/L (21.0-32.0); Calcium 9.0 mg/dL (8.5-10.1); Chloride 104 mmol/L (98-107); Estimated GFR 111.36 (mL/min/1.73m2); Ferritin 67 ng/mL (8-252); Glucose 84 mg/dL (74-106); Potassium 3.9 mmol/L (3.5-5.1); Sodium 142 mmol/L (136-145); TSH (W/Ref FT4) 1.84 uIU/mL (0.36-3.74); Total Protein 7.9 g/dL (6.4-8.2); Vitamin D 25 Total 35 ng/mL (30-100)
[2025-05-31 17:47] LABS: Iron 116 ug/dL (50-170); Total Iron Binding Capacity 413 ug/dL (250-450); Transferrin Sat 28 % (15-50)
== END 2025-05-31 15:25 | disposition home or self-care (01) ==
LOC: NCHCN 15:24
DX: R53.83 Other fatigue (principal)
CPT/HCPCS: 80053; 82306; 85027; 82728; 83540; 83550; 84443

== ENCOUNTER 2025-06-21 03:07 | Outpatient (CLI) | payer OTHER, SELFPAY ==
--- NOTE | 2025-06-21 | DI.MAMMO_ITS ---
Exam(s) MAMMO SCREENING EXAM: MAMMO SCREENING CLINICAL HISTORY: SCREENING, Z12.31,BASELINE TECHNIQUE: Mammograms were interpreted according to the usual protocol including computer analysis with CAD system, tomosynthesis and C-view imaging. COMPARISON: None. Baseline examination. FINDINGS: The breasts are composed of heterogeneously dense fibroglandular densities, Breast Density category C. No suspicious masses or suspicious microcalcifications are seen. No skin thickening or abnormal axillary lymph nodes are seen. IMPRESSION: BI-RADS Category 1, Negative mammogram. Yearly screening mammography is recommended. Breast Density: Category C - The breasts are heterogeneously dense, which may obscure small masses. Breast density Category C or D implies that the patient has dense breast tissue. Dense breast tissue can make it harder to find cancer on a mammogram. Dense breast tissue is also associated with an increased risk of breast cancer. This information about the result of the mammogram report was provided to the patient to raise their awareness. Use this report when you speak with the patient about their risks for breast cancer, which includes their family history. At that time, you may recommend additional screening tests (Ultrasound or MRI) as these tests may add significant information. A negative radiographic report should not delay biopsy if a dominant or clinically suspicious mass is present. Up to ten percent of cancers are not identified on mammography. A negative report may reinforce clinical impression. Adenosis and dense breasts may obscure an underlying neoplasm. False positive reports average 6 to 10%.
== END 2025-06-21 03:27 ==
DX: Z12.31 Encounter for screening mammogram for malignant neoplasm of breast (principal); R92.323 Mammographic fibroglandular density, bilateral breasts; R92.333 Mammographic heterogeneous density, bilateral breasts
CPT/HCPCS: 77063; 77067